=== PATIENT | male | born 1950 | race Hispanic/Latino ===

== ENCOUNTER 2024-11-25 05:57 | Observation (INO) | payer OTHER ==
[2024-11-19 11:42] VITALS: BP 187/83; PULSE 53; RESP 18; TEMP 97.1
--- NOTE | 2024-11-19 11:42 | EKG ---
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
--- NOTE | 2024-11-19 12:00 | NUR ---
PREOP MESSI EPPERSON INSTRUCTED PT ON INCENTIVE SPIROMETRY. PT ACHIEVED [id number]
[~2024-11-25] VITALS: Ht 162.6 cm; Wt 73.9 kg
[2024-11-25] VITALS (26 sets, daily range): BP systolic 102–153; BP diastolic 62–76; PULSE 49–76; RESP 13–18; TEMP 97.6–98.6; O2SAT 98–100
[~2024-11-25 05:57] MED LIST: IBUP-2077 PO; METF-446 PO; rosuvastatin PO
[2024-11-25] MEDS: ceFAZolin SODIUM 2 GM VIAL ONE (06:31)
[2024-11-25] MEDS: 0.9%NACL 1000ML 1,000 ML IV SCH ×2 (06:32→11:26)
[2024-11-25] MEDS: 0.9%NACL 1000ML 1,000 ML IV ONE (06:32)
[2024-11-25] MEDS ORDERED: ketaMINE 50MG/ML SYRINGE 50 MG/ML DISP.SYRIN ONE (06:48)
[2024-11-25] MEDS ORDERED: ROPivacaine 0.5% 5MG/ML 30ML ONE (06:48)
[2024-11-25] MEDS ORDERED: rocuRONium bROMide 10MG/1ML 5ML VL ONE (06:51)
[2024-11-25] MEDS ORDERED: FENTanyl CITRate PF 50 MCG/1 ML 2ML VIAL ONE (06:51)
[2024-11-25] MEDS ORDERED: proPOFol 10 MG/ML 20ML VIAL IV ONE (06:51)
[2024-11-25] MEDS ORDERED: LIDOCAINE HCL-MPF 2% 10ML AMP IJ ONE (06:51)
[2024-11-25] MEDS ORDERED: ondanSETRON 4MG INJ ONE (07:27)
[2024-11-25] MEDS ORDERED: dexaMETHasone SOD PHOSPHATE 10MG/ML 1ML VIAL ONE (07:27)
[2024-11-25] MEDS: ceFAZolin SODIUM 1 GM VIAL ONE (07:35)
[2024-11-25] MEDS: TRANEXAMIC ACID 1000MG/10ML ONE (07:40)
[2024-11-25] MEDS: ROPivacaine 0.5% 5MG/ML 30ML ONE (08:21)
[2024-11-25] MEDS: ketOROlac 30MG VIAL (30MG/ML) ONE (08:21)
[2024-11-25] MEDS ORDERED: ePHEDrine SULFate 50 MG/ML AMPULE ONE (08:30)
[2024-11-25] MEDS: TRANEXAMIC ACID 1000MG/10ML IV ONE (08:54)
[2024-11-25] MEDS ORDERED: GLYCOPYRROLATE 0.2 MG/ML 5 ML VIAL ONE (09:10)
[2024-11-25] MEDS ORDERED: NEOSTIGMINE METHYLSULFATE 1MG/ML IV ONE (09:10)
--- NOTE | 2024-11-25 09:13 | OP ---
Operative Note: DATE OF PROCEDURE: 11/25/24 PREOPERATIVE DIAGNOSIS: Right knee osteoarthritis. POSTOPERATIVE DIAGNOSIS: Right knee osteoarthritis. PROCEDURE PERFORMED: Right knee total knee arthroplasty. SURGEON: Floridalma Patton MD VEGETABLE TESTER: Leah Johns and Byron Kaiser. ANESTHESIA: General with adductor canal block. ANESTHESIA: DIEGO Balbuena. ESTIMATED BLOOD LOSS: 50cc. COMPLICATIONS: None. DRAINS: None. SPECIMENS REMOVED: resected bone. Not sent to pathology. IMPLANTS: [employer] Journey II BCS size 5 Oxinium femur, size 4 tibial base plate, 35 mm patella, 15 mm polyethylene STATEMENT OF MEDICAL NECESSITY: The patient is a 74-year-old male who suffers from right knee osteoarthritis failing conservative management. After discussion of the risks, benefits, and alternatives with the patient, they voluntarily agreed to undergo the aforementioned procedure. DESCRIPTION OF PROCEDURE: Patient was properly identified in the preoperative holding area. Surgical site marking was verified and surgery consent reviewed. The patient was then taken to the operating room and placed in supine position on the OR table. After induction of general anesthesia, preoperative antibiotics were given, all bony prominences were well-padded, and a well padded tourniquet was applied but not inflated at this time. The right lower extremity was then prepped and draped in usual sterile fashion. Surgical time out was done verifying correct surgery, side, site, and location to be performed. We then began the procedure by exsanguinating the limb using an Esmarch and inflating the tourniquet to 350 mmHg. At this point, we made an anterior midline incision using a 10 blade, coming down sharply the level of the fascia. Skin flaps were elevated medially and laterally. We then obtained a clean 10 blade and performed a standard medial parapatellar arthrotomy. We excised the infrapatellar fat pad. We performed our soft tissue releases off of the tibia. We transected the ACL and removed the anterior portion of the medial & lateral meniscus. We then brought the knee into hyperflexion with the patella everted. We used our entry reamer to enter the femoral canal. We then placed our intramedullary cutting guide for our distal femoral cutting block. We then performed our distal femoral osteotomy ensuring appropriate rotation and removed the bony wafer. We then removed these pins and block and then used jig 2 to size the distal femur with the after mentioned size found. We then placed our 5-in-1 cutting block in 4 degrees of external rotation and took our 5 cuts ensuring to protect the patellar tendon and the collateral ligaments. We then removed the cutting block and our bony fragments using a curved osteotome. We then placed our PCL retractor subluxating the tibia anteriorly. Using an extra medullary tibial cutting guide, we hung the block for our proximal tibial cut taking 2 mm off the more diseased portion. Prior to pinning this block in place, we ensured appropriate varus/valgus alignment and posterior slope similar to the chinik slope of the patient's knee. We then performed our proximal ti bial osteotomy and removed the bony wafer using Bovie electrocautery to release any remaining soft tissue attachments. We then used our tibial sizing paddle and checked once more for varus & valgus alignment and found this to be appropriate. At this point, we pinned our tibial paddle in place. We then removed the PCL retractor and subluxated the tibia posteriorly while we placed our femoral trial component. We then finished preparing the notch with the reamer and box chisel. The notch portion of the trial femoral component was then placed. A posterior stabilized polyethylene, size 9 trial was placed. This was immediately increased up to a size 13 due to laxity with varus and valgus stressing. The knee was then taken through range of motion and found to have stable full range of motion. We then placed a bump under the ankle and everted the patella to perform our freehand cut of the undersurface the patella. We then sized our patella and reamed to the lug holes for this. We placed our trial patellar component and begin to take the knee through range of motion. The patella had appropriate tracking. At this point we began removing our trial components and punched the tibial keel prior to removing our tibial trial component. Final components were opened and cement was mixed on the back table while we injected local cocktail in the posterior capsule. We then thoroughly irrigated out the bone and dried the bony surfaces. We cemented our tibial component in place ensuring to remove excess cement and placed our trial polyethylene. We then cemented our femoral component in place once again taking time to ensure excess cement was removed leg was brought into full extension to help squeeze the excess cement from around the femoral component. We then brought the knee back in a flexion to remove this portion of the cement at this point we placed the ankle in a bump thoroughly irrigated off the patellar component and cemented our patellar component in standard fashion again removing excess cement. While we waited for the cement to cure, we thoroughly irrigated out the wound with normal saline. Once our cement had cured, we took the knee through a range of motion and found full and stable range of motion. We then elected to use the size 15 polyethylene and removed our trial polyethylene. We impacted our final polyethylene component in place in standard fashion and took the knee through a range of motion check once more. This was satisfactory so we began to repair the arthrotomy using #1 Vicryl in interrupted [id number] fashion. Subcutaneous tissue was repaired using 2-0 Vicryl. Running subcuticular 3-0 Monocryl stitch with Dermabond placed over this for the skin. We then applied a foam barrier dressing and a pressure dressing consisting of 4 x 4's fluffs and an Yimi wrap. The tourniquet was then deflated. Patient was awakened from anesthesia, and they were taken to the recovery room in stable condition. FLORIDALMA PATTON MD Nov 25, 2024 09:13
--- NOTE | 2024-11-25 09:19 | DS ---
Discharge Summary Hospital Course Summary: The patient was admitted to the hospital postoperatively on 11/25/2024 after undergoing right total knee arthroplasty. They did well with routine postoperative pain control. They worked well with physical therapy. They developed some acute blood loss anemia but remained asymptomatic. The hospital course was otherwise uncomplicated. They were subsequently able to be discharged on postoperative day [] once discharge arrangements were made with home health physical therapy. Corn Sheller(s): None Procedure(s): Right total knee arthroplasty, 11/25/2024 Assessment/Plan: ASSESSMENT: Status post right Total knee arthroplasty PLAN: See discharge instructions Discharge Instructions: Begin working with home health physical therapy. Dressing may be removed 11/27/24 and left open to air. Showers ok allowing soap and water to run over the wound. Pat dry. Do not submerge wound in tub/pool. Do not apply ointments. Do not apply Betadine. Do not apply peroxide. Ice packs to decrease pain/swelling. Prescriptions have been sent to the pharmacy: *[place] 5/325mg 1-2 tab every 6 hours as needed for severe pain. (please call for refills) Cyclobenzaprine 5mg 1 tab every 8 hours as needed for muscle spasm pain. Gabapentin 100mg 1 tab every 8 hours (may discontinue if drowsy). Colace 100mg 1 tab orally twice a day as needed for constipation. Aspirin 325mg twice a day for 30 days to prevent blood clots. Call for a follow-up appointment in 2-3 weeks at [facility]. Home Medications: Reported Medications Ibuprofen (Ibuprofen 800 mg Tab) 800 Mg Tab, 800 MG PO AD PRN for PAIN, TAB 11/19/24 [rosuvastatin] No Conflict Check, 20 MG PO HS 11/19/24 Metformin HCl (Metformin HCl) 1,000 Mg Tablet, 1000 MG PO BID, TAB 11/19/24 KIRSTIN LEBLANC MD Nov 25, 2024 09:19
[2024-11-25] MEDS ORDERED: HYDROcodone/APAP 5/325 1 TAB TABLET PO PRN ×2 (09:30)
[2024-11-25] MEDS ORDERED: CALCIUM CARB 500MG PO PRN (09:30)
[2024-11-25] MEDS: ketOROlac 15MG/ML VIAL (15MG/ML) ONE (09:30)
[2024-11-25] MEDS ORDERED: PoTASSium chloRIDE 20MEQ/100ML 100 ML IV PRN (09:30)
[2024-11-25] MEDS: ketOROlac 15MG/ML VIAL (15MG/ML) IV SCH (09:30)
[2024-11-25] MEDS ORDERED: PoTASSium chl 10% ELIXIR 20MEQ 20 MEQ/15 ML UDCUP PO PRN (09:30)
[2024-11-25] MEDS ORDERED: ondanSETRON 4MG INJ IVP PRN (09:30)
[2024-11-25] MEDS ORDERED: FERROUS FUMARATE 324 MG TABLET PO PRN (09:30)
[2024-11-25] MEDS ORDERED: PoTASSium chloRIDE 20MEQ ER 20 MEQ ERTAB PO PRN (09:30)
--- NOTE | 2024-11-25 10:10 | NUR ---
patient arrived from pacu patient drowsy, but oriented x4, vitals stable on 3L nasal cannula, neurovascular assessment documented, denies pain/nausea at this time RT called for incentive spirometer
[2024-11-25] MEDS: INSULIN humuLIN R 100 UNIT/ML 3ML SQ SCH (11:26)
[2024-11-25] MEDS: FAMOTIDINE 20MG VIAL IV ONE (11:27)
[2024-11-25] MEDS: acetaMINOPHEN 100 ML ONE (11:27)
--- NOTE | 2024-11-25 11:43 | HMCIMG ---
KNEE/PATELLA 1-2VWS RT HISTORY: Right total knee arthroplasty COMPARISON: None TECHNIQUE: 2 images of right knee were obtained. FINDINGS: Total right knee arthroplasty changes are seen. There is soft tissue swelling and soft tissue is seen. Degenerative changes are seen. IMPRESSION: 1. Findings as described above.
--- NOTE | 2024-11-25 12:56 | NUR ---
CM NOTE Met with pt and state lives at home with spouse, independent with adls/ambulation. no dme no home services. dc plan is back home. discussed dc planning for postop md orders for HH and dme. choice letter obtained. for any in network provider. Addendum: 11/25/24 at 1258 by CURLY REY CM Amended: Links added.
[2024-11-25] MEDS: HYDROcodone/APAP 5/325 1 TAB TABLET PO PRN (13:12)
[2024-11-25] MEDS: GABApentin 100 MG CAPSULE PO SCH (13:12)
--- NOTE | 2024-11-25 13:15 | NUR ---
Patient seen and evaluated. Prior to surgery, patient did not use an AD however was limited in his mobility. Plan is for DC home with family. Patient has two steps in home. Will practice prior to DC. Addendum: 11/25/24 at 1645 by KAYE ROJAS PT Amended: Links added.
--- NOTE | 2024-11-25 14:30 | NUR ---
ORTHO COORDINATOR: TEACHING REGARDING DVT AND PNEUMONIA PREVENTION, PAIN EXPECTATIONS AND PAIN MANAGEMENT. PATIENT IN BED, FAMILY AT BEDSIDE. HOSPITAL DECKHAND MAINTENANCE NOT AVAILABLE. FAMILY MEMBER USED TO TRANSLATE. B SCD SLEEVES IN PLACE AND FUNCTIONING. INCENTIVE SPIROMETER ON BEDSIDE TRAY. PATIENT RETURN DEMONSTRATED PROPER USE OF INCENTIVE SPIROMETER AND FOOT FLEXION/EXTENSION EXERCISES. NUMERIC PAIN SCALE REVIEWED. PATIENT REMINDED PAIN MEDICATION MUST BE REQUESTED. ENCOURAGED PATIENT TO SET A PHONE ALARM EVERY FOUR HOURS AND PERFORM A PAIN ASSESSMENT. CALL OUT FOR MEDICATIONS USING A NUMERIC VALUE AND DESCRIBING TYPE OF PAIN. PATIENT AND FAMILY VERBALIZED UNDERSTANDING. PAIN DENIES PAIN, REMINDED HE HAD REGIONAL ANESTHESIA AND WOULD NOT FEEL ANYTHING FOR SEVERAL HOURS. NO ADDITIONAL QUESTIONS/CONCERNS AT THIS TIME.
--- NOTE | 2024-11-25 16:01 | NUR ---
sathish spoke to marisela at [facility] HH [phone] and states pt is accepted. nurse to call report at [facility]. also spoke to payton at [facility], and states pt is approved for [place] and 3 [facility], can deliver dme tomorrow.
[2024-11-25] MEDS: ceFAZolin SODIUM 2 GM VIAL IVP SCH (16:45)
[2024-11-25] MEDS: atorVAStatin 40 MG TABLET PO SCH (21:35)
[2024-11-25] MEDS: doCUSate SODIUM 100 MG CAP PO SCH (21:35)
[2024-11-25] MEDS: metFORmin HCL 500 MG TABLET PO SCH (21:35)
[2024-11-26 03:42] VITALS: BP 112/63; PULSE 66; RESP 18; TEMP 98.1
[2024-11-26 05:19] LABS: HEMATOCRIT 34.5 % (42-54); MEAN CORPUSCULAR HEMOGLOBIN 27.8 pg (27.0-33.0); MEAN CORPUSCULAR HGB CONC 32.2 g/dL (32.0-36.0); MEAN CORPUSCULAR VOLUME 86.3 fL (79-99); WHITE BLOOD COUNT (AUTO) 12.5 K/uL (4.8-10.8)
[2024-11-26 05:28] LABS: CREATININE 0.9 mg/dL (0.5-1.3); POTASSIUM 3.7 mmol/L (3.5-5.1)
[2024-11-26 08:00] VITALS: O2SAT 100
--- NOTE | 2024-11-26 08:00 | PN ---
Ortho postop day one. This morning the patient is awake alert and oriented he is seated out of bed in a chair resting comfortably alternating extension and flexion of the operative extremity. Daughter is at the bedside. Reporting little to no pain. Vital signs have remained stable. Afebrile. Laboratory results reviewed. Noted to have a drop in hemoglobin and hematocrit as expected after TKA. Patient is asymptomatic. We will continue to observe and address per protocol as necessary. Yimi bandage his already been removed from the operative extremity and the anterior dressing is intact. While seated he gets to 90 on flexion and extension -10. Gastrocnemius soft nontender. Negative Homans. Operative findings discussed with the patient. Voiding on his own pending to pass gas and have BM still. Ambulated yesterday with physical therapy about 30 ft. Pending further physical therapy this morning. Anticipated discharge goal is home health/PT. Assessment: Status post right total knee arthroplasty. Asymptomatic acute postoperative blood loss anemia. Plan: Continue with Dr. Patton's TKA protocol and discharge planning. Asymptomatic acute postoperative blood loss anemia addressed with protocol as necessary Vitals/Labs Vital Signs Date Time Temp Pulse Resp B/P (MAP) Pulse Ox O2 Delivery O2 Flow Rate FiO2 11/26/24 03:42 98.1 66 18 112/63 100 Room Air 21 11/25/24 20:00 0 Laboratory Tests 11/26/24 05:08 Medications Current Medications Sodium Chloride 1,000 ml @ 0 mls/hr Q0M IV Last administered on 11/25/24at 06:32; Start 11/25/24 at 06:00; Stop 12/25/24 at 05:59 Cefazolin Sodium 2 gm STK-MED ONCE .ROUTE; Start 11/25/24 at 06:00; Stop 11/25/24 at 06:00; Status DC Sodium Chloride 1,000 ml @ As Directed STK-MED ONCE IV Last administered on 11/25/24at 06:32; Start 11/25/24 at 06:00; Stop 11/25/24 at 06:00; Status DC Ketorolac Tromethamine 30 mg STK-MED ONCE .ROUTE Last administered on 11/25/24at 08:21; Start 11/25/24 at 06:25; Stop 11/25/24 at 06:25; Status DC Ropivacaine 150 mg STK-MED ONCE .ROUTE Last administered on 11/25/24at 08:21; Start 11/25/24 at 06:25; Stop 11/25/24 at 06:25; Status DC Cefazolin Sodium 1 gm STK-MED ONCE .ROUTE Last administered on 11/25/24at 07:35; Start 11/25/24 at 06:27; Stop 11/25/24 at 06:27; Status DC Acetaminophen 100 ml @ As Directed STK-MED ONCE .ROUTE; Start 11/25/24 at 06:33; Stop 11/25/24 at 06:34; Status DC Famotidine 20 mg STK-MED ONCE IV; Start 11/25/24 at 06:33; Stop 11/25/24 at 06:34; Status DC Ropivacaine 150 mg STK-MED ONCE .ROUTE; Start 11/25/24 at 06:48; Stop 11/25/24 at 06:48; Status DC Ketamine HCl 50 mg STK-MED ONCE .ROUTE; Start 11/25/24 at 06:48; Stop 11/25/24 at 06:48; Status DC Lidocaine HCl 1 ml STK-MED ONCE IJ; Start 11/25/24 at 06:51; Stop 11/25/24 at 06:51; Status DC Propofol 200 mg STK-MED ONCE IV; Start 11/25/24 at 06:51; Stop 11/25/24 at 06:52; Status DC Rocuronium [place] 50 mg STK-MED ONCE .ROUTE; Start 11/25/24 at 06:51; Stop 11/25/24 at 06:52; Status DC Fentanyl Citrate 100 mcg STK-MED ONCE .ROUTE; Start 11/25/24 at 06:51; Stop 11/25/24 at 06:52; Status DC Ondansetron HCl 4 mg STK-MED ONCE .ROUTE; Start 11/25/24 at 07:27; Stop 11/25/24 at 07:32; Status DC Dexamethasone Sodium Phosphate 10 mg STK-MED ONCE .ROUTE; Start 11/25/24 at 07:27; Stop 11/25/24 at 07:32; Status DC Tranexamic Acid 1,000 mg STK-MED ONCE .ROUTE Last administered on 11/25/24at 07:40; Start 11/25/24 at 07:34; Stop 11/25/24 at 07:35; Status DC Ephedrine Sulfate 50 mg STK-MED ONCE .ROUTE; Start 11/25/24 at 08:30; Stop 11/25/24 at 08:30; Status DC Tranexamic Acid 1,000 mg STK-MED ONCE IV Last administered on 11/25/24at 08:54; Start 11/25/24 at 08:54; Stop 11/25/24 at 08:55; Status DC Glycopyrrolate 1 mg STK-MED ONCE .ROUTE; Start 11/25/24 at 09:10; Stop 11/25/24 at 09:10; Status DC Neostigmine Methylsulfate 10 mg STK-MED ONCE IV; Start 11/25/24 at 09:10; Stop 11/25/24 at 09:10; Status DC Sodium Chloride 1,000 ml @ 100 mls/hr Q10H IV Last administered on 11/25/24at 11:26; Start 11/25/24 at 09:30; Stop 11/26/24 at 09:29 Polyethylene Glycol 17 gm DAILY PO; Start 11/26/24 at 09:00; Stop 12/26/24 at 08:59 Bisacodyl 10 mg DAILY PRN RC; Start 11/28/24 at 09:30; Stop 12/28/24 at 09:29 Ketorolac Tromethamine 15 mg Q6H PRN IV; Start 11/26/24 at 09:30; Stop 12/01/24 at 09:29 Ferrous Fumarate 324 mg DAILY PRN PO; Start 11/25/24 at 09:30; Stop 12/25/24 at 09:29 Ondansetron HCl 4 mg Q6H PRN IVP; Start 11/25/24 at 09:30; Stop 12/25/24 at 09:29 Calcium Carbonate 500 mg Q12H PRN PO; Start 11/25/24 at 09:30; Stop 12/25/24 at 09:29 Insulin Human Regular INSULIN SLIDING SCAL... ACHS SQ Last administered on 11/25/24at 21:36; Start 11/25/24 at 11:30; Stop 12/25/24 at 11:29 Cefazolin Sodium 2 gm Q8H IVP Last administered on 11/25/24at 21:38; Start 11/25/24 at 14:30; Stop 11/25/24 at 22:31; Status DC Cyclobenzaprine HCl 5 mg Q8H PRN PO; Start 11/25/24 at 09:30; Stop 12/25/24 at 09:29 Gabapentin 100 mg TID PO Last administered on 11/25/24at 21:35; Start 11/25/24 at 14:00; Stop 12/25/24 at 13:59 Aspirin 325 mg DAILY PO; Start 11/26/24 at 09:00; Stop 12/26/24 at 08:59 Ketorolac Tromethamine 15 mg Q8H IV Last administered on 11/26/24at 01:42; Start 11/25/24 at 09:30; Stop 11/26/24 at 01:31; Status DC Docusate Sodium 100 mg BID PO Last administered on 11/25/24at 21:35; Start 11/25/24 at 21:00; Stop 12/25/24 at 20:59 Potassium Chloride 100 ml @ 100 mls/hr AD PRN IV; Start 11/25/24 at 09:30; Stop 12/25/24 at 09:29 Potassium Chloride 20 meq AD PRN PO; Start 11/25/24 at 09:30; Stop 12/25/24 at 09:29 Potassium Chloride 20 meq AD PRN PO; Start 11/25/24 at 09:30; Stop 12/25/24 at 09:29 Tramadol HCl 50 mg Q6H PRN PO; Start 11/25/24 at 09:30; Stop 11/30/24 at 09:29 Acetaminophen/ Hydrocodone Bitart Q4H PRN PO; Start 11/25/24 at 09:30; Stop 11/25/24 at 09:28; Status DC Metformin HCl 1,000 mg BID PO Last administered on 11/25/24at 21:35; Start 11/25/24 at 21:00; Stop 12/25/24 at 20:59 Atorvastatin Calcium 40 mg HS PO Last administered on 11/25/24at 21:35; Start 11/25/24 at 21:00; Stop 12/25/24 at 20:59 Acetaminophen/ Hydrocodone Bitart 1 tab Q4H PRN PO; Start 11/25/24 at 09:30; Stop 11/30/24 at 09:29 Acetaminophen/ Hydrocodone Bitart 2 tab Q4H PRN PO Last administered on 11/25/24at 13:12; Start 11/25/24 at 09:30; Stop 11/30/24 at 09:29 Ketorolac Tromethamine 15 mg STK-MED ONCE .ROUTE; Start 11/25/24 at 09:28; Stop 11/25/24 at 09:28; Status DC DENAE CAVAZOS NP Nov 26, 2024 08:00
[2024-11-26] MEDS: ASPIRIN 325MG EC TAB PO SCH (08:08)
[2024-11-26] MEDS: polyETHYLene GLYCol 3350 17 GM POWD.PACK PO SCH (08:08)
[2024-11-26 08:09] VITALS: BP 105/56; PULSE 59; RESP 22; TEMP 98.5
[2024-11-26] MEDS ORDERED: ketOROlac 15MG/ML VIAL (15MG/ML) IV PRN (09:30)
--- NOTE | 2024-11-26 09:30 | NUR ---
CM Note: HH and DME approved CM spoke to Lory mosley/[facility], confirmed pt has approval, will see patient day after DC. CM spoke to Gerard mosley/[facility], confirmed pt has approval, family picked up DME yesterday. Dr Patton updated. CM to continue to follow up.
--- NOTE | 2024-11-26 11:35 | NUR ---
nurse note PCT notified nurse of low glucose 65, gave patient oral intake, awaiting reassessment. patient alert and oriented x4, denies any symptoms, family at bedside
[2024-11-26 12:57] VITALS: BP 124/67; PULSE 58; RESP 16; TEMP 98.7
[2024-11-26] MEDS: CYCLOBENZAPRINE HCL 10 MG TABLET PO PRN (15:02)
[2024-11-26] MEDS: traMADol HCL 50 MG TABLET PO PRN (15:03)
[2024-11-26 16:40] VITALS: BP_SYST 124; BP_SYST 139; BP_DIAS 63; BP_DIAS 64; PULSE 61; PULSE 67; RESP 16; TEMP 98.2; TEMP 98.7
[2024-11-26] MEDS ORDERED: HYDR-4060 PO (17:34)
[2024-11-26] MEDS ORDERED: CYCL-309 PO (17:34)
[2024-11-26] MEDS ORDERED: ASPI-891 PO (17:34)
[2024-11-26] MEDS ORDERED: GABA100C PO (17:34)
[2024-11-26] MEDS ORDERED: DOCU-116 PO (17:34)
--- NOTE | 2024-11-26 18:50 | NUR ---
nurse note received call back from home health agency, [facility], gave report to Gale Lindsay RN. advised nurse that patient has DME already at home.
--- NOTE | 2024-11-26 18:52 | NUR ---
discharged patient given discharge paperwork, educated patient and family to follow up with primary care provider and [facility] - provided patient the office phone number to call to schedule since after 5pm. Educated on medications, diet, follow ups, activity, and signs and symptoms to report/return to ER. answered patient's questions, patient and family understood.
[2024-11-28] MEDS ORDERED: BisaCODYL 10 MG SUPP.RECT RC PRN (09:30)
== END 2024-11-26 19:15 | disposition home or self-care (01) ==
LOC: DAH 05:57 → DAHIP 05:58 → 4BH 10:10
PROVIDERS: ADMIT Student in an Organized Health Care Education/Training Program; ATTEND Student in an Organized Health Care Education/Training Program
DX: M17.11 Unilateral primary osteoarthritis, right knee (principal); E78.5 Hyperlipidemia, unspecified; E11.9 Type 2 diabetes mellitus without complications; M54.2 Cervicalgia; R03.0 Elevated blood-pressure reading, without diagnosis of hypertension; E78.00 Pure hypercholesterolemia, unspecified; Z85.46 Personal history of malignant neoplasm of prostate; Z79.899 Other long term (current) drug therapy; Z98.890 Other specified postprocedural states
CPT/HCPCS: 84134; 86140; 36415 ×2; 93005; 87641; 27447; 96365; 96366; 96375; 64447; 82948 ×9; 73560; 97161; 97116 ×4; 97530 ×4; 96376; 80048; 85027; J1815 ×2; G0378 ×31; A4223 ×2; A4663; J3490 ×8; J3010; J0690 ×4; J1100; J7030; J2704; J2405; J1885 ×4; J2710; J2795 ×2; C1713 ×2; C1776 ×2; A4649 ×2; A4930; A6255; A4215; A4222; A4221; A4216